=== PATIENT | male | born 1985 | race Caucasian/White ===

== ENCOUNTER 2017-02-12 15:34 | Emergency (ER) | payer SELFPAY | END 2017-02-12 17:05 | disposition left against medical advice (07) | LOC: ED 15:34 | DX: Z53.21 Procedure and treatment not carried out due to patient leaving prior to being seen by health care provider (principal) ==

== ENCOUNTER 2018-07-24 04:02 | Inpatient (IN) | payer SELFPAY ==
[2018-07-24 05:04] LABS: Basophils # (Auto) 0.1 K/mm3 (0.0-0.1); Basophils % (Auto) 0.5 % (0.0-1.8); Eosinophils # (Auto) 0.5 K/mm3 (0.0-0.4); Eosinophils % (Auto) 4.3 % (0.0-4.3); Hematocrit 44.4 % (35.5-45.6); Hemoglobin 14.9 gm/dl (11.8-15.2); Lymphocytes # (Auto) 1.7 K/mm3 (1.2-5.4); Lymphocytes % (Auto) 15.2 % (13.4-35.0); Mean Corpuscular HGB Conc 34 % (32-34); Mean Corpuscular Volume 85 fl (84-94); Monocytes # (Auto) 0.7 K/mm3 (0.0-0.8); Monocytes % (Auto) 6.1 % (0.0-7.3); Platelet Count 311 K/mm3 (140-440); Red Blood Count 5.22 M/mm3 (3.65-5.03); Red Cell Distribution Width 14.4 % (13.2-15.2)
[2018-07-24 05:45] LABS: Alanine Aminotransferase 36 units/L (7-56); BUN/Creatinine Ratio 16; Blood Urea Nitrogen 14 mg/dL (9-20); Hemolysis Index 12
--- NOTE | 2018-07-24 06:37 | Emergency Department Report ---
ED Abdominal Pain HPI - General Chief Complaint: Abdominal Pain Stated Complaint: ABD PAIN Time Seen by Provider: 07/24/18 06:14 Source: patient Mode of arrival: Ambulatory Limitations: No Limitations - History of Present Illness Initial Comments: Patient is a 33-year-old male that comes emergency with complaints of lower abdominal pain 2 days and nausea and diarrhea. Patient denies vomiting. Patient denies fever and chills. Patient states the pain in his abdomen as a 7 out of 10. Patient states the pain is in the bilateral lower abdomen and n onradiating. Patient denies blood in his stool. MD Complaint: abdominal pain -: Sudden Location: LLQ, RLQ Radiation: none Migration to: no migration Severity: severe Severity scale (0 -10): 7 Quality: stabbing Consistency: constant Improves With: rest Worsens With: movement Associated Symptoms: nausea, diarrhea. denies: vomiting, chills, constipation, dysuria, hematochezia, melena, hematuria, anorexia, syncope - Related Data Home Medications Medication Instructions Recorded Confirmed Last Taken No Known Home Medications [No 07/24/18 07/24/18 Unknown Reported Home Medications] Allergies Allergy/AdvReac Type Severity Reaction Status Date / Time No Known Allergies Allergy Unverified 07/24/18 04:41 ED Review of Systems ROS: Stated complaint: ABD PAIN Other details as noted in HPI Constitutional: denies: chills, fever Eyes: denies: eye pain, eye discharge, vision change ENT: denies: ear pain, throat pain Respiratory: denies: cough, shortness of breath, wheezing Cardiovascular: denies: chest pain, palpitations Endocrine: no symptoms reported Gastrointestinal: abdominal pain, nausea, diarrhea. denies: vomiting, constipation Genitourinary: denies: urgency, dysuria Musculoskeletal: denies: back pain, joint swelling, arthralgia Skin: denies: rash, lesions Neurological: denies: headache, weakness, paresthesias Psychiatric: denies: anxiety, depression Hematological/Lymphatic: denies: easy bleeding, easy bruising ED Past Medical Hx - Past Medical History Previous Medical History?: Yes Additional medical history: Bowel obstruction - Surgical History Past Surgical History?: Yes Additional Surgical History: Expl Lap - Family History Family history: no significant - Social History Smoking Status: Current Every Day Smoker Substance Use Type: None - Medications Home Medications: Home Medications Medication Instructions Recorded Confirmed Last Taken Type No Known Home Medications [No 07/24/18 07/24/18 Unknown History Reported Home Medications] ED Physical Exam - General Limitations: No Limitations General appearance: alert, in no apparent distress - Head Head exam: Present: atraumatic, normocephalic - Eye Eye exam: Present: normal appearance, PERRL Pupils: Present: normal accommodation - ENT ENT exam: Present: mucous membranes moist - Neck Neck exam: Present: normal inspection - Respiratory Respiratory exam: Present: normal lung sounds bilaterally. Absent: respiratory distress - Cardiovascular Cardiovascular Exam: Present: regular rate, normal rhythm. Absent: systolic murmur, diastolic murmur, rubs, gallop - GI/Abdominal GI/Abdominal exam: Present: soft, tenderness (bilateral lower quadrant tenderness to palpation), normal bowel sounds. Absent: distended, guarding - Rectal Rectal exam: Present: deferred - Extremities Exam Extremities exam: Present: normal inspection - Back Exam Back exam: Present: normal inspection - Neurological Exam Neurological exam: Present: alert, oriented X3 - Psychiatric Psychiatric exam: Present: normal affect, normal mood - Skin Skin exam: Present: warm, dry, intact, normal color. Absent: rash ED Course Vital Signs 07/24/18 07/24/18 07/24/18 04:36 06:24 06:30 Temperature 97.9 F Pulse Rate 101 H 107 H 95 H Respiratory 18 15 17 Rate Blood Pressure 118/86 143/91 Blood Pressure [Left] O2 Sat by Pulse 96 97 97 Oximetry 07/24/18 07/24/18 07/24/18 06:41 06:51 06:53 Temperature 97.6 F Pulse Rate 89 91 H 97 H Respiratory 15 18 14 Rate Blood Pressure 143/91 143/91 Blood Pressure 143/91 [Left] O2 Sat by Pulse 96 97 99 Oximetry 07/24/18 07/24/18 07/24/18 06:54 07:00 07:11 Temperature Pulse Rate 90 87 Respiratory 14 13 15 Rate Blood Pressure 141/94 141/94 Blood Pressure [Left] O2 Sat by Pulse 98 98 98 Oximetry 07/24/18 07/24/18 07/24/18 07:21 07:30 07:41 Temperature Pulse Rate 91 H 97 H 85 Respiratory 14 16 12 Rate Blood Pressure 141/94 135/91 135/91 Blood Pressure 137/62 [Left] O2 Sat by Pulse 99 96 98 Oximetry 07/24/18 07/24/18 07/24/18 07:51 08:00 08:11 Temperature Pulse Rate 93 H 87 87 Respiratory 15 15 16 Rate Blood Pressure 135/91 139/90 139/90 Blood Pressure [Left] O2 Sat by Pulse 97 98 100 Oximetry 07/24/18 07/24/18 07/24/18 08:24 09:56 09:59 Temperature Pulse Rate 92 H 82 Respiratory 15 18 Rate Blood Pressure 139/90 139/90 Blood Pressure 149/88 [Left] O2 Sat by Pulse 98 94 100 Oximetry 07/24/18 07/24/18 07/24/18 10:00 10:11 10:21 Temperature Pulse Rate Respiratory Rate Blood Pressure 135/85 135/85 135/85 Blood Pressure [Left] O2 Sat by Pulse 95 95 98 Oximetry 07/24/18 07/24/18 07/24/18 10:30 10:41 10:51 Temperature Pulse Rate Respiratory Rate Blood Pressure 146/92 146/92 146/92 Blood Pressure [Left] O2 Sat by Pulse 96 97 93 Oximetry 07/24/18 07/24/18 07/24/18 11:01 11:11 11:19 Temperature Pulse Rate 82 Respiratory 17 Rate Blood Pressure 142/89 142/89 Blood Pressure 142/78 [Left] O2 Sat by Pulse 94 96 100 Oximetry 07/24/18 11:21 Temperature Pulse Rate Respiratory Rate Blood Pressure 142/89 Blood Pressure [Left] O2 Sat by Pulse 96 Oximetry - Consultations Consultation #1: Discussed Case with general surgery, Dr. Hooks. Dr. Hooks wants patient BM by mouth given fluids and NG if necessary And patient to be admitted to the hospitalist service. 07/24/18 10:04 Consultation #2: Hospitalist consulted for admission. Hospitalist to admit patient. Hospitalist to assume care patient. 07/24/18 10:07 ED Medical Decision Making - Lab Data Result diagrams: 07/24/18 04:49 07/24/18 04:49 - Radiology Data Radiology results: report reviewed CT ABDOMEN PELVIS WITH CONTRAST: HISTORY: abdominal pain. IMPRESSION: Findings consistent with a partial mid small bowel obstruction. Mild fatty infiltration of the liver. Surgical changes as described. - Medical Decision Making Patient is a 33-year-old male that presents to emergency room with complaints of abdominal pain and nausea,vomiting, diarrhea. She has CT done and it shows small bowel obstruction. Patient's history as well as exertion. General surgery consult. Patient will be admitted to the hospitalist service. Patient's labs unremarkable except for signs of dehydration. Patient given f luids in the ER. Patient given Zofran ER. Patient denied any nausea in the ER and Gen. surgery agrees that the NG tube be held at this time. - Differential Diagnosis sbo. n/v/d. gastritis Critical Care Time: Yes Critical care attestation.: If time is entered above; I have spent that time in minutes in the direct care of this critically ill patient, excluding procedure time. Critical Care Time: 35 minutes ED Disposition Clinical Impression: SBO (small bowel obstruction), Dehydration Abdominal pain Qualifiers: Abdominal location: lower abdomen, unspecified Qualified Code(s): R10.30 - Lower abdominal pain, unspecified Nausea & vomiting Qualifiers: Vomiting type: unspecified Vomiting Intractability: non-intractable Qualified Code(s): R11.2 - Nausea with vomiting, unspecified Disposition: DC-09 OP ADMIT IP TO THIS HOSP Is pt being admited?: Yes Does the pt Need Aspirin: No Condition: Critical Time of Disposition: 10:07
[2018-07-24] MEDS ORDERED: ZOFRAN IV ONE (08:52)
[2018-07-24] MEDS ORDERED: NACL 0.9% 1000 ML 1,000 ML IV ONE (08:52)
--- NOTE | 2018-07-24 09:38 | Cat Scan Report ---
CT ABDOMEN PELVIS WITH CONTRAST: HISTORY: abdominal pain. COMPARISON: none. TECHNIQUE: Helical CT in 1.25mm intervals following IV contrast. Sagittal and coronal reconstructions. FINDINGS: Lung bases: Normal. Liver: Mild diffuse fatty infiltration throughout the liver. No enlargement, mass or surface nodularity. Biliary system: Cholecystectomy changes. Pancreas: Normal. Spleen: Normal. Kidneys/ureters/bladder: Normal. Adrenal glands: Normal. Aorta: Normal. Intestines: There are multiple mildly dilated loops of small bowel in the upper abdomen containing moderate air-fluid levels. Distal small bowel loops and colon are decompressed. The transition point is not clearly identified. No evidence for free air. Appendix: Appendectomy changes. Pelvic viscera: Normal. Ascites: None. Adenopathy: None. Musculoskeletal: The bony structures are intact. A small umbilical hernia containing fat is identified. No bowel loops are incorporated. There also appear to be 1 or 2 tiny supraumbilical ventral wall defect containing fat. IMPRESSION: Findings consistent with a partial mid small bowel obstruction. Mild fatty infiltration of the liver. Surgical changes as described.
[2018-07-24 10:17] LABS: Bilirubin,Urine NEG (Negative); Blood,Urine NEG (Negative); Color,Urine Yellow (Yellow); Mucus,Urine 3+ /HPF; Protein,Urine <15 mg/dL mg/dL (Negative); Urobilinogen,Urine < 2.0 mg/dL (<2.0)
[2018-07-24] MEDS ORDERED: SODIUM CHLORIDE FLUSH SYRINGE 10 ML IV PRN (10:35)
[2018-07-24] MEDS ORDERED: TYLENOL PO PRN (10:35)
[2018-07-24] MEDS ORDERED: ZOFRAN IV PRN (10:35)
--- NOTE | 2018-07-24 10:35 | History and Physical Report ---
History of Present Illness Date of examination: 07/24/18 Date of admission: 07/24/18 Chief complaint: Abdominal pain, nausea, diarrhea History of present illness: Patient is a 33-year-old male with past medical history of exploratory laparotomy and bowel resection secondary to bowel obstruction who presents to the ER with complaints of nausea with associated vomiting and diarrhea intermittently in the past week. The patient was abdominal pain of 7/10 with no radiating bilateral lower abdomen area noted. He initially had denied vomiting but the report 1 episode of dry heaves. He reports that this is similar to when he needed surgery. But appears to be improving since presentation to the hospital and just wanted to have this checked out. He unfortunately continues to smoke tobacco. Past History Past Medical History: other (elvis obstruction) Past Surgical History: bowel surgery Social history: single, smoking, full code. denies: alcohol abuse, prescription drug abuse, IV drug use Family history: no significant family history Medications and Allergies Allergies Allergy/AdvReac Type Severity Reaction Status Date / Time No Known Allergies Allergy Unverified 07/24/18 04:41 Home Medications Medication Instructions Recorded Confirmed Last Taken Type No Known Home Medications [No 07/24/18 07/24/18 Unknown History Reported Home Medications] Exam - Physical Exam Narrative exam: VITAL SIGNS: Reviewed. GENERAL: The patient appeared well nourished and normally developed, Vital signs as documented. HEAD: No signs of head trauma. EYES: Pupils are equal. Extraocular motions intact. EARS: Hearing grossly intact. MOUTH: Oropharynx is normal. NECK: No adenopathy, no JVD. Mildly tender on the right side. CHEST: Chest with clear breath sounds bilaterally. No wheezes, rales, or rhonchi. CARDIAC: Regular rate and rhythm. S1 and S2, without murmurs, gallops, or rubs. VASCULAR: No Edema. Peripheral pulses normal and equal in all extremities. ABDOMEN: Soft, distended and tender but No rebound or guarding, and no masses palpated. Bowel Sounds normal. MUSCULOSKELETAL: Good range of motion of all major joints. Extremities without clubbing, cyanosis or edema. NEUROLOGIC EXAM: Alert and oriented x 3 No focal sensory or strength defici ts. Speech normal. Follows commands. PSYCHIATRIC: Mood normal. SKIN: No rash or lesions. - Constitutional Vitals: Temp Pulse Resp BP Pulse Ox 97.6 F 82 18 149/88 100 07/24/18 06:53 07/24/18 09:59 07/24/18 09:59 07/24/18 09:59 07/24/18 09:59 Results - Labs CBC & Chem 7: 07/24/18 04:49 07/24/18 04:49 Labs: Laboratory Last Values WBC 11.4 K/mm3 (4.5-11.0) H 07/24/18 04:49 RBC 5.22 M/mm3 (3.65-5.03) H 07/24/18 04:49 Hgb 14.9 gm/dl (11.8-15.2) 07/24/18 04:49 Hct 44.4 % (35.5-45.6) 07/24/18 04:49 MCV 85 fl (84-94) 07/24/18 04:49 MCH 29 pg (28-32) 07/24/18 04:49 MCHC 34 % (32-34) 07/24/18 04:49 RDW 14.4 % (13.2-15.2) 07/24/18 04:49 Plt Count 311 K/mm3 (140-440) 07/24/18 04:49 Lymph % (Auto) 15.2 % (13.4-35.0) 07/24/18 04:49 [place] % (Auto) 6.1 % (0.0-7.3) 07/24/18 04:49 Eos % (Auto) 4.3 % (0.0-4.3) 07/24/18 04:49 Baso % (Auto) 0.5 % (0.0-1.8) 07/24/18 04:49 Lymph # 1.7 K/mm3 (1.2-5.4) 07/24/18 04:49 [place] # 0.7 K/mm3 (0.0-0.8) 07/24/18 04:49 Eos # 0.5 K/mm3 (0.0-0.4) H 07/24/18 04:49 Baso # 0.1 K/mm3 (0.0-0.1) 07/24/18 04:49 Seg Neutrophils % 73.9 % (40.0-70.0) H 07/24/18 04:49 Seg Neutrophils # 8.5 K/mm3 (1.8-7.7) H 07/24/18 04:49 Sodium 137 mmol/L (137-145) 07/24/18 04:49 Potassium 3.8 mmol/L (3.6-5.0) 07/24/18 04:49 Chloride 100.1 mmol/L (98-107) 07/24/18 04:49 Carbon Dioxide 24 mmol/L (22-30) 07/24/18 04:49 17 mmol/L 07/24/18 04:49 BUN 14 mg/dL (9-20) 07/24/18 04:49 0.9 mg/dL (0.8-1.5) 07/24/18 04:49 Estimated GFR > 60 ml/min 07/24/18 04:49 16 % 07/24/18 04:49 Glucose 114 mg/dL (75-100) H 07/24/18 04:49 Calcium 9.0 mg/dL (8.4-10.2) 07/24/18 04:49 0.50 mg/dL (0.1-1.2) 07/24/18 04:49 AST 18 units/L (5-40) 07/24/18 04:49 ALT 36 units/L (7-56) 07/24/18 04:49 72 units/L (35-129) 07/24/18 04:49 7.1 g/dL (6.3-8.2) 07/24/18 04:49 4.0 g/dL (3.9-5) 07/24/18 04:49 1.3 % 07/24/18 04:49 Yellow (Yellow) 07/24/18 09:49 Clear (Clear) 07/24/18 09:49 5.0 (5.0-7.0) 07/24/18 09:49 Ur Specific [place] > 1.059 (1.003-1.030) H 07/24/18 09:49 <15 mg/dl mg/dL (Negative) 07/24/18 09:49 Neg mg/dL (Negative) 07/24/18 09:49 Neg mg/dL (Negative) 07/24/18 09:49 Neg (Negative) 07/24/18 09:49 Neg (Negative) 07/24/18 09:49 Neg (Negative) 07/24/18 09:49 < 2.0 mg/dL (<2.0) 07/24/18 09:49 Ur Leukocyte Esterase Neg (Negative) 07/24/18 09:49 1.0 /HPF (0.0-6.0) 07/24/18 09:49 1.0 /HPF (0.0-6.0) 07/24/18 09:49 U Epithel Cells (Auto) 1.0 /HPF (0-13.0) 07/24/18 09:49 3+ /HPF 07/24/18 09:49 Assessment and Plan Assessment and plan: Patient is a 33-year-old male with past medical history of exploratory laparotomy and bowel resection secondary to bowel obstruction who presents to the ER with complaints of nausea with associated vomiting and diarrhea intermittently in the past week. The patient was abdominal pain of 7/10 with no radiating bilateral lower abdomen area noted. He initially had denied vomiting but the report 1 episode of dry heaves. He reports that this is similar to when he needed surgery. But appears to be improving since presentation to the hospital and just wanted to have this checked out. He unfortunately continues to smoke tobacco. ROS: Except as noted in the HPI all 14 point system review the patient otherwise negative - CT ABDOMEN PELVIS WITH CONTRAST: Findings consistent with a partial mid small bowel obstruction. Mild fatty infiltration of the liver. Small Bowel obstruction Gastritis secondary to ABOVE Peritoneal irritation secondary to SBO Tobacco dependance Leukocytosis-Reactive Obesity- Counselling provided on weight loss Plan Admit to Med surge unit Surgery consult Judicious pain control Encourage ambulation Tobacco cessation, 15 mins counselling provided Anti-emetics Correct electrolytes as needed DVT/GI propHY Advance Directives: Yes Plan of care discussed with patient/family: Yes
[2018-07-24] MEDS: NACL 0.9% 1000 ML 1,000 ML IV SCH ×2 (12:49→20:44)
--- NOTE | 2018-07-24 15:18 | Consultation ---
History of Present Illness Consult date: 07/24/18 Reason for consult: abdominal pain Requesting physician: MARLY TERRAZAS III Chief complaint: abdominal swelling - History of present illness History of present illness: 33yo M presents with 2 day history of abdominal pain, swelling, nausea, vomiting. His history is significant for recent laparotomy at [facility] in December 2017. Upon arrival this morning he passed a large amount of flatus and had a liquid bowel movement. His pain currently is less than what it was last night. However, he does feel more swollen. Denies any nausea or vomiting at this time. He feels very thirsty. Past History Past Medical History: No medical history, DVT (both legs in 2018 - completed 3 months of coumadin). denies: COPD Past Surgical History: cholecystectomy, bowel surgery (ex lap for bowel obstruction with bowel resection - 12/2017 ([facility])- unknown etiology; Open erica Dec-Jan 2018) Social history: smoking (1ppd), other (works as pharmacy delivery driver). denies: alcohol abuse, prescription drug abuse, IV drug use Family history: no significant family history Medications and Allergies Allergies Allergy/AdvReac Type Severity Reaction Status Date / Time No Known Allergies Allergy Unverified 07/24/18 04:41 Home Medications Medication Instructions Recorded Confirmed Last Taken Type No Known Home Medications [No 07/24/18 07/24/18 Unknown History Reported Home Medications] Active Meds: Active Medications Acetaminophen (Tylenol) 650 mg PO Q4H PRN PRN Reason: Pain MILD(1-3)/Fever >100.5/JOHN Sodium Chloride (Nacl 0.9% 1000 Ml) 1,000 mls @ 125 mls/hr IV DIRECT NURIA Last Admin: 07/24/18 12:49 Dose: 125 mls/hr Documented by: Morphine Sulfate (Morphine) 2 mg IV Q6H PRN PRN Reason: Pain, Moderate (4-6) Nicotine (Habitrol) 21 mg TD QDAY NURIA Ondansetron HCl (Zofran) 4 mg IV Q8H PRN PRN Reason: Nausea And Vomiting Sodium Chloride (Sodium Chloride Flush Syringe 10 Ml) 10 ml IV BID NURIA Sodium Chloride (Sodium Chloride Flush Syringe 10 Ml) 10 ml IV PRN PRN PRN Reason: LINE FLUSH Review of Systems - Constitutional no fever, no chills, no chronic pain - Cardiovascular no chest pain, no shortness of breath - Respiratory cough (chronic), no shortness of breath - Gastrointestinal abdominal pain, nausea, vomiting, diarrhea, change in bowel habits, belching, dyspepsia/bloating, no hematemesis, no coffee ground emesis, no BRBPR, no melena, no hematochezia - Genitourinary no dysuria - Muskuloskeletal no low back pain Exam Vital Signs Temp Pulse Resp BP Pulse Ox 97.9 F 101 H 18 118/86 96 07/24/18 04:36 07/24/18 04:36 07/24/18 04:36 07/24/18 04:36 07/24/18 04:36 - General physical appearance Positive: no distress, no pain, obese, other (appears very comfortable. partially sedated) - Eyes Positive: normal occular movement, other (pin point pupils) - Respiratory Positive: normal expansion, normal respiratory effort wheezing: left (mild - inspiratory) - Cardiovascular Rhythm: regular - Extremities Extremity abnormal: edema (bilateral lower extremities) - Abdomen Abdomen: Present: soft, bowel sounds hypoactive (quiet), distended, surgical scars (well healed midline and right subcostal), other (no pelvic shake tenderness). Absent: tender, guarding, rigid, wound Hernia: incisional (at umbo. easily reducible. NT) - Integumentary no rash, no growths, no abnormal pigmentation - Neurologic Neurologic: alert and oriented to time, place and person, motor strength and sensation are grossly intact - Psychiatric Psychiatric: appropriate mood/affect, intact judgment & insight Results - Labs 07/24/18 04:49 07/24/18 04:49 Abnormal lab results 07/24/18 07/24/18 07/24/18 Range/Units 04:49 04:49 09:49 WBC 11.4 H (4.5-11.0) K/mm3 RBC 5.22 H (3.65-5.03) M/mm3 Eos # 0.5 H (0.0-0.4) K/mm3 Seg Neutrophils % 73.9 H (40.0-70.0) % Seg Neutrophils # 8.5 H (1.8-7.7) K/mm3 Glucose 114 H (75-100) mg/dL Ur Specific [place] > 1.059 H (1.003-1.030) Diabetes panel 07/24/18 Range/Units 04:49 Sodium 137 (137-145) mmol/L Potassium 3.8 (3.6-5.0) mmol/L Chloride 100.1 (98-107) mmol/L Carbon Dioxide 24 (22-30) mmol/L BUN 14 (9-20) mg/dL Creatinine 0.9 (0.8-1.5) mg/dL Glucose 114 H (75-100) mg/dL Calcium 9.0 (8.4-10.2) mg/dL AST 18 (5-40) units/L ALT 36 (7-56) units/L Alkaline Phosphatase 72 (35-129) units/L Total Protein 7.1 (6.3-8.2) g/dL Albumin 4.0 (3.9-5) g/dL Calcium panel 07/24/18 Range/Units 04:49 Calcium 9.0 (8.4-10.2) mg/dL Albumin 4.0 (3.9-5) g/dL Pituitary panel 07/24/18 Range/Units 04:49 Sodium 137 (137-145) mmol/L Potassium 3.8 (3.6-5.0) mmol/L Chloride 100.1 (98-107) mmol/L Carbon Dioxide 24 (22-30) mmol/L BUN 14 (9-20) mg/dL Creatinine 0.9 (0.8-1.5) mg/dL Glucose 114 H (75-100) mg/dL Calcium 9.0 (8.4-10.2) mg/dL Adrenal panel 07/24/18 Range/Units 04:49 Sodium 137 (137-145) mmol/L Potassium 3.8 (3.6-5.0) mmol/L Chloride 100.1 (98-107) mmol/L Carbon Dioxide 24 (22-30) mmol/L BUN 14 (9-20) mg/dL Creatinine 0.9 (0.8-1.5) mg/dL Glucose 114 H (75-100) mg/dL Calcium 9.0 (8.4-10.2) mg/dL Total Bilirubin 0.50 (0.1-1.2) mg/dL AST 18 (5-40) units/L ALT 36 (7-56) units/L Alkaline Phosphatase 72 (35-129) units/L Total Protein 7.1 (6.3-8.2) g/dL Albumin 4.0 (3.9-5) g/dL - Imaging CT scan - abdomen: report reviewed, image reviewed CT scan - pelvis: report reviewed, image reviewed Assessment and Plan - Patient Problems (1) SBO (small bowel obstruction) Current Visit: Yes Status: Acute Plan to address problem: Pt stable. May be a partial obstruction based on the CT scan and the history. Offered NG tube for decompression but patient would like to hold off for now. Advised to let us know if his symptoms worsen and would recommend that NG tube be placed at that time. He understands. I have encouraged him to ambulate. I explained the reasoning behind it. As he is very dehydrated, we will order additional fluids. At this point, we'll follow him clinically. If something changes that I will consider additional imaging. Patient has a relatively benign abdomen. Answered all the questions from the family. Need to get records from [facility]. The story does not make sense that no reason was found for a bowel obstruction. Will follow along. Please call with questions. time=40min
[2018-07-24] MEDS ORDERED: NACL 0.9% 1000 ML 1,000 ML IV SCH (16:00)
[2018-07-24] MEDS: HABITROL TD SCH (18:32)
[2018-07-24] MEDS: MORPHINE IV PRN (20:40)
[2018-07-24] MEDS: SODIUM CHLORIDE FLUSH SYRINGE 10 ML IV SCH (20:45)
[2018-07-25] MEDS: SODIUM CHLORIDE FLUSH SYRINGE 10 ML IV SCH ×3 (01:12→22:06)
[2018-07-25 07:34] LABS: BUN/Creatinine Ratio 17; Blood Urea Nitrogen 12 mg/dL (9-20); Calcium 8.3 mg/dL (8.4-10.2); Hemolysis Index 7
--- NOTE | 2018-07-25 09:40 | Progress Note ---
Assessment and Plan - Patient Problems (1) SBO (small bowel obstruction) Current Visit: Yes Status: Acute Plan to address problem: Pt stable. Hospital course so far suggest partial small bowel obstruction. He has had multiple liquid bowel movements overnight. Symptoms are about the same. He is no worse than yesterday. I have encouraged him to ambulate more. We'll keep him nothing by mouth for now. His subjective dehydration is better but he is still thirsty. We'll give him another bolus and increase his IV fluid rate. Need to get records from [facility]. The story does not make sense that no reason was found for a bowel obstruction. Will follow along. Please call with questions. time=10min (2) Incisional hernia of anterior abdominal wall without obstruction or gangrene Current Visit: Yes Status: Acute Plan to address problem: Pt stable. Patient has a mildly symptomatic incisional hernia. Would benefit from elective repair. Nothing needs to be done at this time. Subjective Date of service: 07/25/18 Patient Reports: Positive: no new complaints, still having pain, flatus, bowel movement, other (bloating is about the same. Walked once in the hallway yeste rday). Negative: nausea, vomiting Objective Vital Signs - 12hr 07/24/18 07/24/18 07/24/18 22:00 23:51 23:53 Temperature 98.4 F Pulse Rate 95 H Respiratory 18 20 Rate Respiratory 18 Rate [Abdomen] Blood Pressure 126/80 O2 Sat by Pulse 98 Oximetry 07/25/18 07/25/18 06:19 06:21 Temperature 97.6 F Pulse Rate 85 Respiratory 18 Rate Respiratory Rate [Abdomen] Blood Pressure 154/94 O2 Sat by Pulse 94 Oximetry - General physical appearance no distress, no pain, other (more awake today. Very relaxed) - Eyes normal occular movement, other (pin point pupils) - Respiratory normal expansion, normal respiratory effort - Abdomen soft, tender (mild in epigastric area), bowel sounds hypoactive, distended (has protuberant abdomen), not guarding, not rigid Hernia: incisional - Integumentary no rash, no growths, no abnormal pigmentation - Psychiatric oriented to time, oriented to person, oriented to place, speech is normal, memory intact - Labs 07/24/18 04:49 07/25/18 06:49 Diabetes panel 07/25/18 Range/Units 06:49 Sodium 139 (137-145) mmol/L Potassium 3.8 (3.6-5.0) mmol/L Chloride 103.6 (98-107) mmol/L Carbon Dioxide 24 (22-30) mmol/L BUN 12 (9-20) mg/dL Creatinine 0.7 L (0.8-1.5) mg/dL Glucose 99 (75-100) mg/dL Calcium 8.3 L (8.4-10.2) mg/dL Calcium panel 07/25/18 Range/Units 06:49 Calcium 8.3 L (8.4-10.2) mg/dL Pituitary panel 07/25/18 Range/Units 06:49 Sodium 139 (137-145) mmol/L Potassium 3.8 (3.6-5.0) mmol/L Chloride 103.6 (98-107) mmol/L Carbon Dioxide 24 (22-30) mmol/L BUN 12 (9-20) mg/dL Creatinine 0.7 L (0.8-1.5) mg/dL Glucose 99 (75-100) mg/dL Calcium 8.3 L (8.4-10.2) mg/dL Adrenal panel 07/25/18 Range/Units 06:49 Sodium 139 (137-145) mmol/L Potassium 3.8 (3.6-5.0) mmol/L Chloride 103.6 (98-107) mmol/L Carbon Dioxide 24 (22-30) mmol/L BUN 12 (9-20) mg/dL Creatinine 0.7 L (0.8-1.5) mg/dL Glucose 99 (75-100) mg/dL Calcium 8.3 L (8.4-10.2) mg/dL
[2018-07-25] MEDS: HABITROL TD SCH (10:13)
[2018-07-25] MEDS: MORPHINE IV PRN ×2 (10:26→17:34)
[2018-07-25] MEDS ORDERED: AFLURIA QUAD 2018-2019 SYRINGE IM ONE (12:00)
--- NOTE | 2018-07-25 13:03 | Progress Note ---
Assessment and Plan Assessment and plan: Patient is a 33-year-old male with past medical history of exploratory laparotomy and bowel resection secondary to bowel obstruction who presents to the ER with complaints of nausea with associated vomiting and diarrhea intermittently in the past week. The patient was abdominal pain of 7/10 with no radiating bilateral lower abdomen area noted. He initially had denied vomiting but the report 1 episode of dry heaves. He reports that this is similar to when he needed surgery. But appears to be improving since presentation to the hospital and just wanted to have this checked out. He unfortunately continues to smoke tobacco. CT ABDOMEN PELVIS WITH CONTRAST: Findings consistent with a partial mid small bowel obstruction. Mild fatty infiltration of the liver. Partial Small Bowel obstruction Gastritis secondary to ABOVE Peritoneal irritation secondary to SBO Tobacco dependance Leukocytosis-Reactive Obesity- Counselling provided on weight loss History of DVT Plan Admit to [facility] unit Surgery consult NOTED Awaiting record from [facility] Judicious pain control Encourage ambulation Tobacco cessation, 15 mins counselling provided Anti-emetics Correct electrolytes as needed DVT/GI propHY Plan discussed with the patient History Interval history: Patient examined this morning reports improvement in symptoms. Intense nausea yesterday. Diarrhea resolved and patient. Remains nothing by mouth Hospitalist Physical - Physical exam Narrative exam: VITAL SIGNS: Reviewed. GENERAL: The patient appeared well nourished and normally developed, Vital signs as documented. HEAD: No signs of head trauma. EYES: Pupils are equal. Extraocular motions intact. EARS: Hearing grossly intact. MOUTH: Oropharynx is normal. NECK: No adenopathy, no JVD. Mildly tender on the right side. CHEST: Chest with clear breath sounds bilaterally. No wheezes, rales, or r honchi. CARDIAC: Regular rate and rhythm. S1 and S2, without murmurs, gallops, or rubs. VASCULAR: No Edema. Peripheral pulses normal and equal in all extremities. ABDOMEN: Soft, distended and tender but No rebound or guarding, and no masses palpated. Bowel Sounds normal. MUSCULOSKELETAL: Good range of motion of all major joints. Extremities without clubbing, cyanosis or edema. NEUROLOGIC EXAM: Alert and oriented x 3 No focal sensory or strength deficits. Speech normal. Follows commands. PSYCHIATRIC: Mood normal. SKIN: No rash or lesions. - Constitutional Vitals: Temp Pulse Resp BP Pulse Ox 98.4 F 94 H 20 137/87 91 07/25/18 11:42 07/25/18 11:42 07/25/18 11:42 07/25/18 11:42 07/25/18 11:42 Results - Labs CBC & Chem 7: 07/24/18 04:49 07/25/18 06:49 Labs: Laboratory Last Values WBC 11.4 K/mm3 (4.5-11.0) H 07/24/18 04:49 RBC 5.22 M/mm3 (3.65-5.03) H 07/24/18 04:49 Hgb 14.9 gm/dl (11.8-15.2) 07/24/18 04:49 Hct 44.4 % (35.5-45.6) 07/24/18 04:49 MCV 85 fl (84-94) 07/24/18 04:49 MCH 29 pg (28-32) 07/24/18 04:49 MCHC 34 % (32-34) 07/24/18 04:49 RDW 14.4 % (13.2-15.2) 07/24/18 04:49 Plt Count 311 K/mm3 (140-440) 07/24/18 04:49 Lymph % (Auto) 15.2 % (13.4-35.0) 07/24/18 04:49 [place] % (Auto) 6.1 % (0.0-7.3) 07/24/18 04:49 Eos % (Auto) 4.3 % (0.0-4.3) 07/24/18 04:49 Baso % (Auto) 0.5 % (0.0-1.8) 07/24/18 04:49 Lymph # 1.7 K/mm3 (1.2-5.4) 07/24/18 04:49 [place] # 0.7 K/mm3 (0.0-0.8) 07/24/18 04:49 Eos # 0.5 K/mm3 (0.0-0.4) H 07/24/18 04:49 Baso # 0.1 K/mm3 (0.0-0.1) 07/24/18 04:49 Seg Neutrophils % 73.9 % (40.0-70.0) H 07/24/18 04:49 Seg Neutrophils # 8.5 K/mm3 (1.8-7.7) H 07/24/18 04:49 Sodium 139 mmol/L (137-145) 07/25/18 06:49 Potassium 3.8 mmol/L (3.6-5.0) 07/25/18 06:49 Chloride 103.6 mmol/L (98-107) 07/25/18 06:49 Carbon Dioxide 24 mmol/L (22-30) 07/25/18 06:49 15 mmol/L 07/25/18 06:49 BUN 12 mg/dL (9-20) 07/25/18 06:49 0.7 mg/dL (0.8-1.5) L 07/25/18 06:49 Estimated GFR > 60 ml/min 07/25/18 06:49 17 % 07/25/18 06:49 Glucose 99 mg/dL (75-100) 07/25/18 06:49 Calcium 8.3 mg/dL (8.4-10.2) L 07/25/18 06:49 0.50 mg/dL (0.1-1.2) 07/24/18 04:49 AST 18 units/L (5-40) 07/24/18 04:49 ALT 36 units/L (7-56) 07/24/18 04:49 72 units/L (35-129) 07/24/18 04:49 7.1 g/dL (6.3-8.2) 07/24/18 04:49 4.0 g/dL (3.9-5) 07/24/18 04:49 1.3 % 07/24/18 04:49 Yellow (Yellow) 07/24/18 09:49 Clear (Clear) 07/24/18 09:49 5.0 (5.0-7.0) 07/24/18 09:49 Ur Specific [place] > 1.059 (1.003-1.030) H 07/24/18 09:49 <15 mg/dl mg/dL (Negative) 07/24/18 09:49 Neg mg/dL (Negative) 07/24/18 09:49 Neg mg/dL (Negative) 07/24/18 09:49 Neg (Negative) 07/24/18 09:49 Neg (Negative) 07/24/18 09:49 Neg (Negative) 07/24/18 09:49 < 2.0 mg/dL (<2.0) 07/24/18 09:49 Ur Leukocyte Esterase Neg (Negative) 07/24/18 09:49 1.0 /HPF (0.0-6.0) 07/24/18 09:49 1.0 /HPF (0.0-6.0) 07/24/18 09:49 U Epithel Cells (Auto) 1.0 /HPF (0-13.0) 07/24/18 09:49 3+ /HPF 07/24/18 09:49 Active Medications - Current Medications Current Medications: Generic Name Dose Route Start Last Admin Trade Name Freq PRN Reason Stop Dose Admin Acetaminophen 650 mg 07/24/18 10:35 Tylenol PO Q4H PRN Pain MILD(1-3)/Fever >100.5/JOHN Enoxaparin Sodium 40 mg 07/25/18 22:00 Lovenox SUB-Q QDAY@2200 NURIA Sodium Chloride 1,000 mls @ 150 mls/hr 07/24/18 11:00 07/24/18 20:44 Nacl 0.9% 1000 Ml IV 125 mls/hr DIRECT NURIA Administration Sodium Chloride 1,000 mls @ 0 mls/hr 07/24/18 16:00 Nacl 0.9% 1000 Ml IV 07/25/18 16:01 ONCE NURIA As Directed Sodium Chloride 1,000 mls @ 0 mls/hr 07/25/18 12:00 Nacl 0.9% 1000 Ml IV 07/26/18 12:01 ONCE NURIA As Directed Morphine Sulfate 2 mg 07/24/18 10:35 07/25/18 10:26 Morphine IV 2 mg Q6H PRN Administration Pain, Moderate (4-6) Nicotine 21 mg 07/24/18 13:00 07/25/18 10:13 Habitrol TD 21 mg QDAY NURIA Administration Ondansetron HCl 4 mg 07/24/18 10:35 07/24/18 20:40 Zofran IV 4 mg Q8H PRN Administration Nausea And Vomiting Sodium Chloride 10 ml 07/24/18 22:00 07/25/18 10:17 Sodium Chloride Flush Syringe 10 Ml IV 10 ml BID NURIA Administration Sodium Chloride 10 ml 07/24/18 10:35 Sodium Chloride Flush Syringe 10 Ml IV PRN PRN LINE FLUSH
[2018-07-25] MEDS: NACL 0.9% 1000 ML 1,000 ML IV SCH ×3 (13:45→18:49)
[2018-07-25] MEDS: LOVENOX SUB-Q SCH (22:05)
[2018-07-26] MEDS: MORPHINE IV PRN ×4 (00:08→19:05)
[2018-07-26 05:45] LABS: Hematocrit 38.7 % (35.5-45.6); Hemoglobin 13.2 gm/dl (11.8-15.2); Mean Corpuscular HGB Conc 34 % (32-34); Mean Corpuscular Volume 85 fl (84-94); Platelet Count 261 K/mm3 (140-440); Red Blood Count 4.54 M/mm3 (3.65-5.03); Red Cell Distribution Width 14.1 % (13.2-15.2)
[2018-07-26 06:18] LABS: BUN/Creatinine Ratio 14; Blood Urea Nitrogen 7 mg/dL (9-20); Calcium 8.3 mg/dL (8.4-10.2); Hemolysis Index 10
[2018-07-26] MEDS: HABITROL TD SCH (10:08)
[2018-07-26] MEDS: NACL 0.9% 1000 ML 1,000 ML IV SCH ×2 (10:08→16:42)
[2018-07-26] MEDS: SODIUM CHLORIDE FLUSH SYRINGE 10 ML IV SCH ×2 (10:08→22:14)
--- NOTE | 2018-07-26 11:30 | Progress Note ---
Assessment and Plan - Patient Problems (1) SBO (small bowel obstruction) Current Visit: Yes Status: Acute Plan to address problem: Pt stable. Hospital course so far suggest partial small bowel obstruction. He has had multiple liquid bowel movements overnight. volume is increasing. Symptoms are about the same. Will check XR today. If bowel distention improving, will try clears today. Need to get records from [facility]. The story does not make sense that no reason was found for a bowel obstruction. Will follow along. Please call with questions. time=10min (2) Incisional hernia of anterior abdominal wall without obstruction or gangrene Current Visit: Yes Status: Acute Plan to address problem: Pt stable. Patient has a mildly symptomatic incisional hernia. Would benefit from elective repair. Nothing needs to be done at this time. Subjective Date of service: 07/26/18 Patient Reports: Positive: no new complaints (feels about the same. Having more liquid BMs). Negative: nausea, vomiting Objective Vital Signs - 12hr 07/25/18 07/26/18 23:58 06:21 Temperature 97.5 F L 97.8 F Pulse Rate 82 84 Respiratory 18 20 Rate Blood Pressure 146/91 149/99 O2 Sat by Pulse 98 98 Oximetry - General physical appearance no distress, no pain, other (appears comfortable) - Eyes normal occular movement, other (pupils less pinpoint today) - Respiratory normal expansion, normal respiratory effort - Abdomen soft, not tender, bowel sounds hypoactive (starting to increase), distended, not guarding, not rigid Hernia: incisional - Integumentary no rash, no growths, no abnormal pigmentation - Psychiatric oriented to time, oriented to person, oriented to place, speech is normal, memory intact - Labs 07/26/18 04:43 07/26/18 04:43 Diabetes panel 07/26/18 Range/Units 04:43 Sodium 136 L (137-145) mmol/L Potassium 3.7 (3.6-5.0) mmol/L Chloride 103.5 (98-107) mmol/L Carbon Dioxide 22 (22-30) mmol/L BUN 7 L (9-20) mg/dL Creatinine 0.5 L (0.8-1.5) mg/dL Glucose 91 (75-100) mg/dL Calcium 8.3 L (8.4-10.2) mg/dL Calcium panel 07/26/18 Range/Units 04:43 Calcium 8.3 L (8.4-10.2) mg/dL Pituitary panel 07/26/18 Range/Units 04:43 Sodium 136 L (137-145) mmol/L Potassium 3.7 (3.6-5.0) mmol/L Chloride 103.5 (98-107) mmol/L Carbon Dioxide 22 (22-30) mmol/L BUN 7 L (9-20) mg/dL Creatinine 0.5 L (0.8-1.5) mg/dL Glucose 91 (75-100) mg/dL Calcium 8.3 L (8.4-10.2) mg/dL Adrenal panel 07/26/18 Range/Units 04:43 Sodium 136 L (137-145) mmol/L Potassium 3.7 (3.6-5.0) mmol/L Chloride 103.5 (98-107) mmol/L Carbon Dioxide 22 (22-30) mmol/L BUN 7 L (9-20) mg/dL Creatinine 0.5 L (0.8-1.5) mg/dL Glucose 91 (75-100) mg/dL Calcium 8.3 L (8.4-10.2) mg/dL
--- NOTE | 2018-07-26 13:42 | XRay Report ---
PROCEDURE: XR ABDOMEN 2V TECHNIQUE: Supine and upright abdomen HISTORY: f/u PSBO COMPARISON: None FINDINGS: There is no free air. There are dilated small bowel loops with air-fluid levels. This is worrisome fo r small bowel obstruction. There are also some air-fluid levels in normal caliber colon. No suspiciou s calcifications are seen. IMPRESSION: Appearance is worrisome for small bowel obstruction. This document is electronically signed by Marly Bartlett MD., July 26 2018 02:40:28 PM ET
--- NOTE | 2018-07-26 14:20 | Progress Note ---
Assessment and Plan Assessment and plan: Patient is a 33-year-old male with past medical history of exploratory laparotomy and bowel resection secondary to bowel obstruction who presents to the ER with complaints of nausea with associated vomiting and diarrhea intermittently in the past week. The patient was abdominal pain of 7/10 with no radiating bilateral lower abdomen area noted. He initially had denied vomiting but the report 1 episode of dry heaves. He reports that this is similar to when he needed surgery. But appears to be improving since presentation to the hospital and just wanted to have this checked out. He unfortunately continues to smoke tobacco. CT ABDOMEN PELVIS WITH CONTRAST: Findings consistent with a partial mid small bowel obstruction. Mild fatty infiltration of the liver. KUB: CONCERNING FOR SMALL BOWEL OBSTRUCTION Partial Small Bowel obstruction Gastritis secondary to ABOVE Peritoneal irritation secondary to SBO Tobacco dependance Leukocytosis-Reactive- resolved Obesity- Counselling provided on weight loss History of DVT Plan Supportive care Surgery consult NOTED Awaiting record from [facility] Judicious pain control Encourage ambulation Tobacco cessation, 15 mins counselling provided Anti-emetics Correct electrolytes as needed DVT/GI propHY Plan discussed with the patient History Interval history: Patient examined this morning reports persistent diarrhea, 3 episodes last night, still with mild abdominal pain, no nausea or vomiting. Hospitalist Physical - Physical exam Narrative exam: VITAL SIGNS: Reviewed. GENERAL: The patient appeared well nourished and normally developed, Vital signs as documented. HEAD: No signs of head trauma. EYES: Pupils are equal. Extraocular motions intact. EARS: Hearing grossly intact. MOUTH: Oropharynx is normal. NECK: No adenopathy, no JVD. Mildly tender on the right side. CHEST: Chest with clear breath sounds bilaterally. No wheezes, rales, or rhonchi. CARDIAC: Regular rate and rhythm. S1 and S2, without murmurs, gallops, or rubs. VASCULAR: No Edema. Peripheral pulses normal and equal in all extremities. ABDOMEN: Soft, distended and tender but No rebound or guarding, and no masses palpated. Bowel Sounds normal. MUSCULOSKELETAL: Good range of motion of all major joints. Extremities without clubbing, cyanosis or edema. NEUROLOGIC EXAM: Alert and oriented x 3 No focal sensory or strength deficits. Speech normal. Follows commands. PSYCHIATRIC: Mood normal. SKIN: No rash or lesions. - Constitutional Vitals: Temp Pulse Resp BP Pulse Ox 98.3 F 84 24 157/95 99 07/26/18 12:16 07/26/18 12:16 07/26/18 12:16 07/26/18 12:16 07/26/18 12:16 Results - Labs CBC & Chem 7: 07/26/18 04:43 07/26/18 04:43 Labs: Laboratory Last Values WBC 6.1 K/mm3 (4.5-11.0) 07/26/18 04:43 RBC 4.54 M/mm3 (3.65-5.03) 07/26/18 04:43 Hgb 13.2 gm/dl (11.8-15.2) 07/26/18 04:43 Hct 38.7 % (35.5-45.6) 07/26/18 04:43 MCV 85 fl (84-94) 07/26/18 04:43 MCH 29 pg (28-32) 07/26/18 04:43 MCHC 34 % (32-34) 07/26/18 04:43 RDW 14.1 % (13.2-15.2) 07/26/18 04:43 Plt Count 261 K/mm3 (140-440) 07/26/18 04:43 Lymph % (Auto) 15.2 % (13.4-35.0) 07/24/18 04:49 [place] % (Auto) 6.1 % (0.0-7.3) 07/24/18 04:49 Eos % (Auto) 4.3 % (0.0-4.3) 07/24/18 04:49 Baso % (Auto) 0.5 % (0.0-1.8) 07/24/18 04:49 Lymph # 1.7 K/mm3 (1.2-5.4) 07/24/18 04:49 [place] # 0.7 K/mm3 (0.0-0.8) 07/24/18 04:49 Eos # 0.5 K/mm3 (0.0-0.4) H 07/24/18 04:49 Baso # 0.1 K/mm3 (0.0-0.1) 07/24/18 04:49 Seg Neutrophils % 73.9 % (40.0-70.0) H 07/24/18 04:49 Seg Neutrophils # 8.5 K/mm3 (1.8-7.7) H 07/24/18 04:49 Sodium 136 mmol/L (137-145) L 07/26/18 04:43 Potassium 3.7 mmol/L (3.6-5.0) 07/26/18 04:43 Chloride 103.5 mmol/L (98-107) 07/26/18 04:43 Carbon Dioxide 22 mmol/L (22-30) 07/26/18 04:43 14 mmol/L 07/26/18 04:43 BUN 7 mg/dL (9-20) L 07/26/18 04:43 0.5 mg/dL (0.8-1.5) L 07/26/18 04:43 Estimated GFR > 60 ml/min 07/26/18 04:43 14 % 07/26/18 04:43 Glucose 91 mg/dL (75-100) 07/26/18 04:43 Calcium 8.3 mg/dL (8.4-10.2) L 07/26/18 04:43 0.50 mg/dL (0.1-1.2) 07/24/18 04:49 AST 18 units/L (5-40) 07/24/18 04:49 ALT 36 units/L (7-56) 07/24/18 04:49 72 units/L (35-129) 07/24/18 04:49 7.1 g/dL (6.3-8.2) 07/24/18 04:49 4.0 g/dL (3.9-5) 07/24/18 04:49 1.3 % 07/24/18 04:49 Yellow (Yellow) 07/24/18 09:49 Clear (Clear) 07/24/18 09:49 5.0 (5.0-7.0) 07/24/18 09:49 Ur Specific [place] > 1.059 (1.003-1.030) H 07/24/18 09:49 <15 mg/dl mg/dL (Negative) 07/24/18 09:49 Neg mg/dL (Negative) 07/24/18 09:49 Neg mg/dL (Negative) 07/24/18 09:49 Neg (Negative) 07/24/18 09:49 Neg (Negative) 07/24/18 09:49 Neg (Negative) 07/24/18 09:49 < 2.0 mg/dL (<2.0) 07/24/18 09:49 Ur Leukocyte Esterase Neg (Negative) 07/24/18 09:49 1.0 /HPF (0.0-6.0) 07/24/18 09:49 1.0 /HPF (0.0-6.0) 07/24/18 09:49 U Epithel Cells (Auto) 1.0 /HPF (0-13.0) 07/24/18 09:49 3+ /HPF 07/24/18 09:49 Active Medications - Current Medications Current Medications: Generic Name Dose Route Start Last Admin Trade Name Freq PRN Reason Stop Dose Admin Acetaminophen 650 mg 07/24/18 10:35 Tylenol PO Q4H PRN Pain MILD(1-3)/Fever >100.5/JOHN Enoxaparin Sodium 40 mg 07/25/18 22:00 07/25/18 22:05 Lovenox SUB-Q 40 mg QDAY@2200 NURIA Administration Sodium Chloride 1,000 mls @ 150 mls/hr 07/24/18 11:00 07/26/18 10:08 Nacl 0.9% 1000 Ml IV 125 mls/hr DIRECT NURIA Administration Morphine Sulfate 2 mg 07/24/18 10:35 07/26/18 12:17 Morphine IV 2 mg Q6H PRN Administration Pain, Moderate (4-6) Nicotine 21 mg 07/24/18 13:00 07/26/18 10:08 Habitrol TD 21 mg QDAY NURIA Administration Ondansetron HCl 4 mg 07/24/18 10:35 07/24/18 20:40 Zofran IV 4 mg Q8H PRN Administration Nausea And Vomiting Sodium Chloride 10 ml 07/24/18 22:00 07/26/18 10:08 Sodium Chloride Flush Syringe 10 Ml IV 10 ml BID NURIA Administration Sodium Chloride 10 ml 07/24/18 10:35 Sodium Chloride Flush Syringe 10 Ml IV PRN PRN LINE FLUSH
--- NOTE | 2018-07-26 17:10 | Event Note ---
Date: 07/26/18 Reviewed abdominal films. Official report does not compare it to the recent CT. My impression is that the Abd XR is better when compared to the CT helper marble finisher image. Pt is clinically stable and having multiple, large liquid BMs. Will start clears and see how he does. If there is concern for intolerance, will order SBFT tomorrow.
[2018-07-26] MEDS ORDERED: APRESOLINE IV PRN (18:59)
[2018-07-26] MEDS: LOVENOX SUB-Q SCH (22:12)
[2018-07-27] MEDS: MORPHINE IV PRN ×3 (01:33→20:32)
[2018-07-27] MEDS: NACL 0.9% 1000 ML 1,000 ML IV SCH ×2 (02:27→11:06)
--- NOTE | 2018-07-27 09:10 | Progress Note ---
Assessment and Plan Assessment and plan: Patient is a 33-year-old male with past medical history of exploratory laparotomy and bowel resection secondary to bowel obstruction who presents to the ER with complaints of nausea with associated vomiting and diarrhea intermittently in the past week. The patient was abdominal pain of 7/10 with no radiating bilateral lower abdomen area noted. He initially had denied vomiting but the report 1 episode of dry heaves. He reports that this is similar to when he needed surgery. But appears to be improving since presentation to the hospital and just wanted to have this checked out. He unfortunately continues to smoke tobacco. CT ABDOMEN PELVIS WITH CONTRAST: Findings consistent with a partial mid small bowel obstruction. Mild fatty infiltration of the liver. KUB: CONCERNING FOR SMALL BOWEL OBSTRUCTION --Partial Small Bowel obstruction; patient had bowel movement Surgery evaluation noted and appreciated, clear liquids advance as tolerated Supportive care --Gastritis secondary to ABOVE; continue PPI Supportive care --Peritoneal irritation secondary to SBO Continue supportive care --Very minimal hyponatremia; IV normal saline to closely monitor electrolytes --Tobacco dependance; smoking cessation Nicotine patch as needed --Obesity; BMI 36.4, advise weight reduction and medically stable --? Incisional hernia abdomen; surgery following --Leukocytosis-Reactive- resolved --DVT prophylaxis; Lovenox Monitor closely and adjust the management as needed History Interval history: Patient seen and examined medical records reviewed Tolerating clear liquids, patient has bowel movements Denies nausea or vomiting Vitals signs reviewed Hospitalist Physical - Constitutional Vitals: Temp Pulse Resp BP Pulse Ox 98.4 F 80 20 155/83 96 07/27/18 06:29 07/27/18 06:29 07/27/18 08:00 07/27/18 06:29 07/27/18 06:29 General appearance: Present: no acute distress, well-nourished - EENT Eyes: Present: PERRL, EOM intact - Respiratory Respiratory effort: normal Respiratory: bilateral: diminished, negative: rales, rhonchi, wheezing - Cardiovascular Rhythm: regular Heart Sounds: Present: S1 & S2 - Extremities Extremities: no ischemia, No edema - Abdominal General gastrointestinal: soft, non-tender, distended, normal bowel sounds - Integumentary Integumentary: Present: clear, warm - Psychiatric Psychiatric: appropriate mood/affect, cooperative - Neurologic Neurologic: CNII-XII intact, moves all extremities Results - Labs CBC & Chem 7: 07/26/18 04:43 07/26/18 04:43 Labs: Laboratory Last Values WBC 6.1 K/mm3 (4.5-11.0) 07/26/18 04:43 RBC 4.54 M/mm3 (3.65-5.03) 07/26/18 04:43 Hgb 13.2 gm/dl (11.8-15.2) 07/26/18 04:43 Hct 38.7 % (35.5-45.6) 07/26/18 04:43 MCV 85 fl (84-94) 07/26/18 04:43 MCH 29 pg (28-32) 07/26/18 04:43 MCHC 34 % (32-34) 07/26/18 04:43 RDW 14.1 % (13.2-15.2) 07/26/18 04:43 Plt Count 261 K/mm3 (140-440) 07/26/18 04:43 Lymph % (Auto) 15.2 % (13.4-35.0) 07/24/18 04:49 [place] % (Auto) 6.1 % (0.0-7.3) 07/24/18 04:49 Eos % (Auto) 4.3 % (0.0-4.3) 07/24/18 04:49 Baso % (Auto) 0.5 % (0.0-1.8) 07/24/18 04:49 Lymph # 1.7 K/mm3 (1.2-5.4) 07/24/18 04:49 [place] # 0.7 K/mm3 (0.0-0.8) 07/24/18 04:49 Eos # 0.5 K/mm3 (0.0-0.4) H 07/24/18 04:49 Baso # 0.1 K/mm3 (0.0-0.1) 07/24/18 04:49 Seg Neutrophils % 73.9 % (40.0-70.0) H 07/24/18 04:49 Seg Neutrophils # 8.5 K/mm3 (1.8-7.7) H 07/24/18 04:49 Sodium 136 mmol/L (137-145) L 07/26/18 04:43 Potassium 3.7 mmol/L (3.6-5.0) 07/26/18 04:43 Chloride 103.5 mmol/L (98-107) 07/26/18 04:43 Carbon Dioxide 22 mmol/L (22-30) 07/26/18 04:43 14 mmol/L 07/26/18 04:43 BUN 7 mg/dL (9-20) L 07/26/18 04:43 0.5 mg/dL (0.8-1.5) L 07/26/18 04:43 Estimated GFR > 60 ml/min 07/26/18 04:43 14 % 07/26/18 04:43 Glucose 91 mg/dL (75-100) 07/26/18 04:43 Calcium 8.3 mg/dL (8.4-10.2) L 07/26/18 04:43 0.50 mg/dL (0.1-1.2) 07/24/18 04:49 AST 18 units/L (5-40) 07/24/18 04:49 ALT 36 units/L (7-56) 07/24/18 04:49 72 units/L (35-129) 07/24/18 04:49 7.1 g/dL (6.3-8.2) 07/24/18 04:49 4.0 g/dL (3.9-5) 07/24/18 04:49 1.3 % 07/24/18 04:49 Yellow (Yellow) 07/24/18 09:49 Clear (Clear) 07/24/18 09:49 5.0 (5.0-7.0) 07/24/18 09:49 Ur Specific [place] > 1.059 (1.003-1.030) H 07/24/18 09:49 <15 mg/dl mg/dL (Negative) 07/24/18 09:49 Neg mg/dL (Negative) 07/24/18 09:49 Neg mg/dL (Negative) 07/24/18 09:49 Neg (Negative) 07/24/18 09:49 Neg (Negative) 07/24/18 09:49 Neg (Negative) 07/24/18 09:49 < 2.0 mg/dL (<2.0) 07/24/18 09:49 Ur Leukocyte Esterase Neg (Negative) 07/24/18 09:49 1.0 /HPF (0.0-6.0) 07/24/18 09:49 1.0 /HPF (0.0-6.0) 07/24/18 09:49 U Epithel Cells (Auto) 1.0 /HPF (0-13.0) 07/24/18 09:49 3+ /HPF 07/24/18 09:49 Active Medications - Current Medications Current Medications: Generic Name Dose Route Start Last Admin Trade Name Vickie PRN Reason Stop Dose Admin Acetaminophen 650 mg 07/24/18 10:35 Tylenol PO Q4H PRN Pain MILD(1-3)/Fever >100.5/JOHN Enoxaparin Sodium 40 mg 07/25/18 22:00 07/26/18 22:12 Lovenox SUB-Q 40 mg QDAY@2200 NURIA Administration Hydralazine HCl 10 mg 07/26/18 18:59 07/26/18 19:08 Apresoline IV 10 mg Q6HR PRN Administration Blood Pressure Sodium Chloride 1,000 mls @ 150 mls/hr 07/24/18 11:00 07/27/18 02:27 Nacl 0.9% 1000 Ml IV 125 mls/hr DIRECT NURIA Administration Morphine Sulfate 2 mg 07/24/18 10:35 07/27/18 08:00 Morphine IV 2 mg Q6H PRN Administration Pain, Moderate (4-6) Nicotine 21 mg 07/24/18 13:00 07/26/18 10:08 Habitrol TD 21 mg QDAY NURIA Administration Ondansetron HCl 4 mg 07/24/18 10:35 07/24/18 20:40 Zofran IV 4 mg Q8H PRN Administration Nausea And Vomiting Sodium Chloride 10 ml 07/24/18 22:00 07/26/18 22:14 Sodium Chloride Flush Syringe 10 Ml IV 10 ml BID NURIA Administration Sodium Chloride 10 ml 07/24/18 10:35 Sodium Chloride Flush Syringe 10 Ml IV PRN PRN LINE FLUSH
[2018-07-27] MEDS: HABITROL TD SCH (11:00)
[2018-07-27] MEDS: SODIUM CHLORIDE FLUSH SYRINGE 10 ML IV SCH ×2 (11:01→21:11)
--- NOTE | 2018-07-27 17:10 | Progress Note ---
Assessment and Plan - Patient Problems (1) SBO (small bowel obstruction) Current Visit: Yes Status: Acute Plan to address problem: Pt stable. Pt is much improved. His PSBO appears to be resolving. Will advance to soft diet. If tolerated, may d/c home. Note: his pain now is restricted to his incisional hernia. This will continue until he has an elective repair. We discussed this today. He can see any general surgeon to have this fixed. He can go to his surgeon at [place], come to our office, or find someone else. We would be happy to see him in the office, but he would need to stop smoking for at least 2 weeks prior to any elective surgery. (2) Incisional hernia of anterior abdominal wall without obstruction or gangrene Current Visit: Yes Status: Acute Plan to address problem: Pt stable. Patient has a mildly symptomatic incisional hernia. Would benefit from elective repair. Nothing needs to be done during this hospitalization. Subjective Date of service: 07/27/18 Patient Reports: Positive: no new complaints, feels better, tolerating liquids well, flatus, other (only pain is at hernia site). Negative: nausea, vomiting Objective Vital Signs - 12hr 07/27/18 07/27/18 07/27/18 06:29 08:00 12:12 Temperature 98.4 F 97.8 F Pulse Rate 80 83 Respiratory 20 20 20 Rate Blood Pressure 155/83 Blood Pressure 145/92 [Left] O2 Sat by Pulse 96 100 Oximetry - General physical appearance no distress, no pain, obese, other (looks much better) - Eyes normal occular movement - Respiratory normal expansion, normal respiratory effort - Abdomen soft, tender (only at incisional hernia site. rest is nontender now), bowel sounds hypoactive, not distended, not guarding, not rigid, surgical scars (well healed) Hernia: incisional - Integumentary no rash, no growths, no abnormal pigmentation - Psychiatric oriented to time, oriented to person, oriented to place, speech is normal, memory intact - Labs 07/26/18 04:43 07/26/18 04:43
[2018-07-27] MEDS: LOVENOX SUB-Q SCH (21:11)
[2018-07-28] MEDS: MORPHINE IV PRN (04:15)
--- NOTE | 2018-07-28 08:05 | Discharge Summary ---
Providers - Providers Date of Admission: 07/24/18 10:16 Date of discharge: 07/28/18 Attending physician: VLADIMIR CROOK 07/24/18 10:24 Consult to Physician [CONS] Routine Comment: DR MK HARRIS W/ DR WRIGHT @1003 Consulting Provider: ZUNILDA WRIGHT Physician Instructions: Reason For Exam: sbo Primary care physician: [facility], Hospitalization Reason for admission: Nausea,vomiting and diarrhea Condition: Stable Pertinent studies: CT abd and pelvis : Partial small bowel obstruction,Fatty infilt liver KUB: CONCERNING FOR SMALL BOWEL OBSTRUCTION Hospital course: Patient is a 33-year-old male with past medical history of exploratory laparotomy and bowel resection secondary to bowel obstruction who presents to the ER with complaints of nausea with associated vomiting and diarrhea intermittently in the past week. The patient was abdominal pain of 7/10 with no radiating bilateral lower abdomen area noted. He initially had denied vomiting but the report 1 episode of dry heaves. He reports that this is similar to when he needed surgery. But appears to be improving since presentation to the hospital and just wanted to have this checked out. He unfortunately continues to smoke tobacco. CT ABDOMEN PELVIS WITH CONTRAST: Findings consistent with a partial mid small bowel obstruction. Mild fatty infiltration of the liver. KUB: CONCERNING FOR SMALL BOWEL OBSTRUCTION Discharge Diagnosis: and management --Partial Small Bowel obstruction; patient had bowel movement Surgery following, clear liquids advance as tolerated,resolved --Gastritis secondary to ABOVE; continue PPI --Peritoneal irritation secondary to SBO,symptoms improved --Very minimal hyponatremia; IV normal saline ,mild improvement --Tobacco dependance; smoking cessation, Nicotine patch as needed --Obesity; BMI 36.4, advise weight reduction and medically stable --? Incisional hernia abdomen; f/u surgery out pt --Leukocytosis-Reactive- resolved --DVT prophylaxis; Lovenox Patient is stable at discharge Disposition: DC-01 TO HOME OR SELFCARE Time spent for discharge: 31 min Core Measure Documentation - Palliative Care Palliative Care/ Comfort Measures: Not Applicable - Core Measures Any of the following diagnoses?: none Exam - Constitutional Vitals: Temp Pulse Resp BP Pulse Ox 97.9 F 83 20 143/95 92 07/28/18 05:28 07/28/18 05:28 07/28/18 05:28 07/28/18 05:28 07/28/18 05:28 General appearance: Present: no acute distress, well-nourished, obese (morbidly obese) - EENT Eyes: Present: PERRL, EOM intact - Neck Neck: Present: supple, normal ROM - Respiratory Respiratory effort: normal Respiratory: negative: rales, rhonchi, wheezing - Cardiovascular Rhythm: regular Heart Sounds: Present: S1 & S2 - Extremities Extremities: no ischemia, No edema - Abdominal General gastrointestinal: Present: soft, non-tender, non-distended, normal bowel sounds, other (incisional hernia) - Integumentary Integumentary: Present: clear, warm - Musculoskeletal Musculoskeletal: strength equal bilaterally - Psychiatric Psychiatric: appropriate mood/affect, cooperative - Neurologic Neurologic: CNII-XII intact, moves all extremities Plan Activity: no restrictions Diet: other (soft diet advance as tolerated) Special Instructions: smoking cessation Additional Instructions: Advance diet as tolerated. Weight reduction when medically stable. Smoking cessation Follow up with: [facility] MD EMMIE [Primary Care Provider] - 7 Days ZUNILDA WRIGHT MD [Staff Physician] - 14 Days Prescriptions: Dicyclomine [Bentyl] 10 mg PO TID PRN #15 capsule PRN Reason: Pain , Severe (7-10) Nicotine [Habitrol] 21 mg TD QDAY #30 patch
--- NOTE | 2018-07-28 08:45 | Progress Note ---
Assessment and Plan - Patient Problems (1) SBO (small bowel obstruction) Current Visit: Yes Status: Acute Plan to address problem: Pt stable. Pt is much improved. His PSBO appears to have resolved. If soft diet tolerated this morning, may d/c home. Note: his pain now is restricted to his incisional hernia. This will continue until he has an elective repair. We discussed this yesterday. He can see any general surgeon to have this fixed. He can go to his surgeon at [place], come to our office, or find someone else. We would be happy to see him in the office, but he would need to stop smoking for at least 2 weeks prior to any elective surgery. Please call with any questions. Time=10min (2) Incisional hernia of anterior abdominal wall without obstruction or gangrene Current Visit: Yes Status: Acute Plan to address problem: Pt stable. Patient has a mildly symptomatic incisional hernia. Would benefit from elective repair. Nothing needs to be done during this hospitalization. Subjective Date of service: 07/28/18 Patient Reports: Positive: no new complaints, feels better. Negative: nausea, vomiting Objective Vital Signs - 12hr 07/27/18 07/27/18 07/27/18 21:02 21:47 22:00 Temperature 97.7 F Pulse Rate 91 H Respiratory 17 20 17 Rate Respiratory 17 Rate [Abdomen] Blood Pressure 132/74 O2 Sat by Pulse 97 Oximetry 07/28/18 07/28/18 07/28/18 04:15 04:45 05:28 Temperature 97.9 F Pulse Rate 83 Respiratory 17 16 20 Rate Respiratory Rate [Abdomen] Blood Pressure 143/95 O2 Sat by Pulse 92 Oximetry - General physical appearance no distress, no pain, other (sitting up in bed eating regular breakfast. looks well) - Respiratory normal expansion, normal respiratory effort - Psychiatric oriented to time, oriented to person, oriented to place, speech is normal, memor y intact - Labs 07/26/18 04:43 07/26/18 04:43
[2018-07-28] MEDS: HABITROL TD SCH (10:23)
[2018-07-28] MEDS: SODIUM CHLORIDE FLUSH SYRINGE 10 ML IV SCH (10:25)
[2018-07-28 13:11] VITALS: BP 135/94
== END 2018-07-28 14:05 | disposition home or self-care (01) | DRG 388 ==
LOC: ED 04:02 → 3A 10:16
PROVIDERS: ADMIT Internal Medicine; ATTEND Internal Medicine
DX: K56.600 Partial intestinal obstruction, unspecified as to cause (principal); K65.9 Peritonitis, unspecified; Z68.41 Body mass index [BMI] 40.0-44.9, adult; E87.1 Hypo-osmolality and hyponatremia; E86.0 Dehydration; F17.210 Nicotine dependence, cigarettes, uncomplicated; E66.01 Morbid (severe) obesity due to excess calories; K43.2 Incisional hernia without obstruction or gangrene; R10.9 Unspecified abdominal pain; K29.70 Gastritis, unspecified, without bleeding; Z90.49 Acquired absence of other specified parts of digestive tract; Z71.6 Tobacco abuse counseling
CPT/HCPCS: 36415; 74019; 74177; 80048; 80053; 81001; 85025; 85027; 90686; 96361; 96374; 99406; G0378; J0360; J1650; J2270; J2405; J7030; Q9967